=== PATIENT | male | born 1940 | race Caucasian/White ===

== ENCOUNTER 2017-11-20 12:19 | Inpatient (IN) | payer OTHER ==
[~2017-11-20] VITALS: Ht 180.3 cm; Wt 81.7 kg
[2017-11-20] MEDS ORDERED: FERROUS SULFAT325 M2 PO (14:53)
[2017-11-20] MEDS ORDERED: ATIVAN2 MG PO (14:53)
[2017-11-20] MEDS ORDERED: NEU300 PO (14:54)
[2017-11-20] MEDS ORDERED: PROTONIX40 MG PO (14:54)
[2017-11-20] MEDS ORDERED: COLACE100 MG PO (14:54)
[2017-11-20] MEDS ORDERED: METOPROLOL TART25 M1 PO (14:55)
[2017-11-20] MEDS ORDERED: LASIX40 MG PO (14:55)
[2017-11-20] MEDS ORDERED: NORCO1 TA2 PO (14:55)
[2017-11-20] MEDS ORDERED: LEVOTHYROXIN0.025 M2 PO (14:56)
[2017-11-20] MEDS ORDERED: BENAZEPRIL HYDR20 M1 PO (14:57)
[2017-11-20] MEDS ORDERED: THE PO (14:58)
[2017-11-20] MEDS ORDERED: VITAMIN B121000 MCG PO (14:58)
[2017-11-20 15:56] LABS: microscopic required? YES; urine erythrocyte TRACE (NEGATIVE)
[2017-11-20 16:09] LABS: BASOPHIL % 0.1 % (0-2)
[2017-11-20 16:13] LABS: PLATELET COUNT 89 x10^3mcL (130-400); RED CELL DISTRIBUTION WIDTH 19.9 % (11.5-14.5)
[2017-11-20 17:05] LABS: CHOLESTEROL/HDL RATIO 3.6
[2017-11-20 17:11] LABS: CALCIUM 8.4 mg/dL (8.5-10.1); CARBON DIOXIDE 26.3 mmol/L (21-32); CHLORIDE SERUM 104 mmol/L (98-107); CREATININE SERUM 0.8 mg/dL (0.7-1.3); GLUCOSE SERUM 122 mg/dL (74-106); POTASSIUM SERUM 4.3 mmol/L (3.5-5.1); SODIUM SERUM 138 mmol/L (136-145)
[2017-11-20 17:15] LABS: FREE T4 1.29 ng/dL (0.76-1.46); FREE THYROXINE INDEX 2.5 ug/dL (1.4-4.5); T4(THYROXINE) 6.6 ug/dL (4.7-13.3)
[2017-11-20 17:17] LABS: ALKALINE PHOSPHATASE 245 U/L (46-116); ALT/SGPT 40 U/L (16-63); AST/SGOT 83 U/L (15-37); BILIRUBIN TOTAL 1.39 mg/dL (0.20-1.00); CHOLESTEROL 149 mg/dL (<200); HDL CHOLESTEROL 43 mg/dL (40-60); PHOSPHOROUS 2.5 mg/dL (2.5-4.9); TOTAL PROTEIN, SERUM 7.9 g/dL (6.4-8.2); URIC ACID 4.7 mg/dL (3.5-7.2)
[2017-11-20 17:19] LABS: ALBUMIN 2.2 g/dL (3.4-5.0)
[2017-11-20 17:28] LABS: T3 TOTAL 0.61 ng/mL
[2017-11-20 18:00] VITALS: BP 122/68
[2017-11-20 21:29] VITALS: BP 102/53
[2017-11-21 05:55] VITALS: BP 93/60
[2017-11-21 07:14] LABS: BASOPHIL % 0 % (0-2); PLATELET COUNT 102 x10^3mcL (130-400); RED CELL DISTRIBUTION WIDTH 20.1 % (11.5-14.5)
[2017-11-21 07:33] LABS: CALCIUM 8.2 mg/dL (8.5-10.1); CARBON DIOXIDE 24.8 mmol/L (21-32); CHLORIDE SERUM 106 mmol/L (98-107); CREATININE SERUM 0.9 mg/dL (0.7-1.3); GLUCOSE SERUM 127 mg/dL (74-106); POTASSIUM SERUM 4.3 mmol/L (3.5-5.1); SODIUM SERUM 138 mmol/L (136-145)
[2017-11-21 12:50] VITALS: BP 112/70
[2017-11-21 17:33] VITALS: BP 104/74
[2017-11-21 21:11] VITALS: BP 115/75
[2017-11-22 05:43] VITALS: BP 128/75
[2017-11-22 07:18] LABS: CALCIUM 8.3 mg/dL (8.5-10.1); CARBON DIOXIDE 25.3 mmol/L (21-32); CHLORIDE SERUM 105 mmol/L (98-107); GLUCOSE SERUM 117 mg/dL (74-106); POTASSIUM SERUM 3.9 mmol/L (3.5-5.1); SODIUM SERUM 137 mmol/L (136-145)
[2017-11-22 07:22] LABS: BASOPHIL % 0.1 % (0-2); PLATELET COUNT 135 x10^3mcL (130-400); RED CELL DISTRIBUTION WIDTH 20.1 % (11.5-14.5)
[2017-11-22 07:23] LABS: rbc morphology (normal/abnorm) ABNORMAL (NORMAL)
[2017-11-22 09:57] VITALS: BP 116/66
[2017-11-22 14:18] VITALS: BP 116/74
[2017-11-22 17:34] VITALS: BP 114/75
[2017-11-22 20:45] VITALS: BP 123/70
[2017-11-23 05:23] VITALS: BP 114/69
[2017-11-23 06:35] LABS: PLATELET COUNT 132 x10^3mcL (130-400)
[2017-11-23 07:00] LABS: BASOPHIL % 0 % (0-2)
[2017-11-23 08:30] VITALS: BP 131/60
[2017-11-23 13:17] VITALS: BP 114/72
[2017-11-23 16:53] VITALS: BP 98/57
[2017-11-23 20:53] VITALS: BP 97/68
[2017-11-24 05:51] VITALS: BP 107/60
[2017-11-24 08:20] VITALS: BP 107/56
[2017-11-24 09:52] VITALS: Ht 180.3 cm; Wt 81.7 kg
[2017-11-24 13:01] LABS: CALCIUM 8.2 mg/dL (8.5-10.1); CARBON DIOXIDE 29.6 mmol/L (21-32); CHLORIDE SERUM 107 mmol/L (98-107); CREATININE SERUM 1.1 mg/dL (0.7-1.3); GLUCOSE SERUM 112 mg/dL (74-106); POTASSIUM SERUM 4.3 mmol/L (3.5-5.1); SODIUM SERUM 142 mmol/L (136-145)
[2017-11-24 18:01] VITALS: BP 100/61
[2017-11-24 21:54] VITALS: BP 116/75
[2017-11-25 05:49] VITALS: BP 118/82
[2017-11-25 06:40] LABS: PLATELET COUNT 131 x10^3mcL (130-400)
[2017-11-25 06:47] LABS: ALKALINE PHOSPHATASE 279 U/L (46-116); ALT/SGPT 36 U/L (16-63); AST/SGOT 90 U/L (15-37); BILIRUBIN TOTAL 1.61 mg/dL (0.20-1.00); CALCIUM 8.9 mg/dL (8.5-10.1); CARBON DIOXIDE 27.2 mmol/L (21-32); CHLORIDE SERUM 106 mmol/L (98-107); GLUCOSE SERUM 103 mg/dL (74-106); POTASSIUM SERUM 3.6 mmol/L (3.5-5.1); SODIUM SERUM 141 mmol/L (136-145); TOTAL PROTEIN, SERUM 7.4 g/dL (6.4-8.2)
[2017-11-25 07:07] LABS: ALBUMIN 2.1 g/dL (3.4-5.0)
[2017-11-25 07:08] LABS: BASOPHIL % 0 % (0-2); RED CELL DISTRIBUTION WIDTH 20.5 % (11.5-14.5)
[2017-11-25 07:09] LABS: rbc morphology (normal/abnorm) ABNORMAL (NORMAL)
[2017-11-25 09:45] VITALS: BP 138/80
[2017-11-25 16:40] VITALS: BP 133/76
[2017-11-25 21:16] VITALS: BP 114/74
[2017-11-26 06:40] VITALS: BP 122/76
[2017-11-26 09:34] VITALS: BP 108/59
[2017-11-26 12:37] LABS: PLATELET COUNT 130 x10^3mcL (130-400)
[2017-11-26 12:41] LABS: RED CELL DISTRIBUTION WIDTH 19.2 % (11.5-14.5)
[2017-11-26 12:45] LABS: CALCIUM 8.5 mg/dL (8.5-10.1); CARBON DIOXIDE 26.4 mmol/L (21-32); CHLORIDE SERUM 108 mmol/L (98-107); CREATININE SERUM 1.3 mg/dL (0.7-1.3); GLUCOSE SERUM 168 mg/dL (74-106); POTASSIUM SERUM 4.1 mmol/L (3.5-5.1); SODIUM SERUM 141 mmol/L (136-145)
[2017-11-26 13:29] LABS: BAND NEUTROPHIL 3 % (0-10); BASOPHIL 0 % (0-2); MONOCYTE 12 % (0-7); SEGMENTED NEUTROPHILS 85 % (37-75); rbc morphology (normal/abnorm) ABNORMAL (NORMAL)
[2017-11-26 13:30] LABS: PLATELET MORPHOLOGY PLATELETS DECREASED
[2017-11-26 17:30] VITALS: BP 88/54
[2017-11-26 19:05] VITALS: BP 96/55
[2017-11-26 21:52] VITALS: BP 97/61
[2017-11-27 06:03] VITALS: BP 101/60
[2017-11-27 08:38] LABS: BASOPHIL % 0 % (0-2); PLATELET COUNT 115 x10^3mcL (130-400); RED CELL DISTRIBUTION WIDTH 19.8 % (11.5-14.5)
[2017-11-27 08:46] LABS: CALCIUM 8.5 mg/dL (8.5-10.1); CARBON DIOXIDE 28.4 mmol/L (21-32); CHLORIDE SERUM 110 mmol/L (98-107); CREATININE SERUM 1.1 mg/dL (0.7-1.3); GLUCOSE SERUM 131 mg/dL (74-106); POTASSIUM SERUM 4.1 mmol/L (3.5-5.1); SODIUM SERUM 142 mmol/L (136-145)
[2017-11-27 09:43] VITALS: BP 104/67
[2017-11-27 17:07] VITALS: BP 98/63
[2017-11-27 22:06] VITALS: BP 110/67
[2017-11-28 05:31] VITALS: BP 105/61
[2017-11-28 06:47] LABS: BASOPHIL % 0 % (0-2); PLATELET COUNT 120 x10^3mcL (130-400)
[2017-11-28 06:54] LABS: RED CELL DISTRIBUTION WIDTH 20.4 % (11.5-14.5)
[2017-11-28 07:04] LABS: CALCIUM 8.5 mg/dL (8.5-10.1); CARBON DIOXIDE 23.8 mmol/L (21-32); CHLORIDE SERUM 108 mmol/L (98-107); CREATININE SERUM 1.2 mg/dL (0.7-1.3); GLUCOSE SERUM 108 mg/dL (74-106); POTASSIUM SERUM 4.2 mmol/L (3.5-5.1); SODIUM SERUM 140 mmol/L (136-145)
[2017-11-28 09:45] VITALS: BP 94/59
[2017-11-28 17:50] VITALS: BP 94/59
[2017-11-28 18:00] VITALS: BP 125/69
[2017-11-28 21:20] VITALS: BP 105/52
[2017-11-29 05:29] VITALS: BP 106/65
[2017-11-29 06:33] LABS: BASOPHIL % 0.1 % (0-2)
[2017-11-29 06:34] LABS: PLATELET COUNT 114 x10^3mcL (130-400); RED CELL DISTRIBUTION WIDTH 19.8 % (11.5-14.5)
[2017-11-29 06:48] LABS: CALCIUM 8.8 mg/dL (8.5-10.1); CARBON DIOXIDE 26.4 mmol/L (21-32); CHLORIDE SERUM 110 mmol/L (98-107); CREATININE SERUM 1.2 mg/dL (0.7-1.3); GLUCOSE SERUM 109 mg/dL (74-106); SODIUM SERUM 144 mmol/L (136-145)
[2017-11-29 10:00] VITALS: BP 108/72
[2017-11-29 17:42] VITALS: BP 105/77
[2017-11-29 21:34] VITALS: BP 115/63
[2017-11-30 05:27] VITALS: BP 107/67
[2017-11-30 06:49] LABS: CALCIUM 8.5 mg/dL (8.5-10.1); CHLORIDE SERUM 112 mmol/L (98-107); CREATININE SERUM 1.1 mg/dL (0.7-1.3); GLUCOSE SERUM 114 mg/dL (74-106); POTASSIUM SERUM 4.2 mmol/L (3.5-5.1); SODIUM SERUM 143 mmol/L (136-145)
[2017-11-30 07:03] LABS: BASOPHIL % 0 % (0-2); PLATELET COUNT 110 x10^3mcL (130-400); RED CELL DISTRIBUTION WIDTH 19.7 % (11.5-14.5)
[2017-11-30 09:51] VITALS: BP 103/69
[2017-11-30 12:48] VITALS: BP 95/66
[2017-11-30 13:57] VITALS: BP 104/69
[2017-11-30 18:08] VITALS: BP 99/67
[2017-11-30 20:42] VITALS: BP 114/63
[2017-12-01 06:10] VITALS: BP 98/67
[2017-12-01 06:36] LABS: CALCIUM 8.3 mg/dL (8.5-10.1); CARBON DIOXIDE 24.6 mmol/L (21-32); CHLORIDE SERUM 114 mmol/L (98-107); CREATININE SERUM 1.1 mg/dL (0.7-1.3); GLUCOSE SERUM 107 mg/dL (74-106); POTASSIUM SERUM 4.9 mmol/L (3.5-5.1); SODIUM SERUM 144 mmol/L (136-145)
[2017-12-01 06:57] LABS: BASOPHIL % 0.2 % (0-2)
[2017-12-01 07:07] LABS: PLATELET COUNT 114 x10^3mcL (130-400); RED CELL DISTRIBUTION WIDTH 20.1 % (11.5-14.5)
[2017-12-01 08:33] VITALS: BP 101/73
[2017-12-01 09:12] VITALS: BP 101/73
[2017-12-01 12:49] VITALS: BP 111/63
[2017-12-01 17:06] VITALS: BP 103/65
[2017-12-01 21:14] VITALS: BP 116/69
[2017-12-02] VITALS (7 sets, daily range): BP systolic 91–103; BP diastolic 48–67
[2017-12-02 06:43] LABS: CALCIUM 8.4 mg/dL (8.5-10.1); CARBON DIOXIDE 25.3 mmol/L (21-32); CHLORIDE SERUM 113 mmol/L (98-107); CREATININE SERUM 1.2 mg/dL (0.7-1.3); GLUCOSE SERUM 107 mg/dL (74-106); MAGNESIUM 2.6 mg/dL (1.8-2.4); PHOSPHOROUS 2.5 mg/dL (2.5-4.9); POTASSIUM SERUM 4.1 mmol/L (3.5-5.1); SODIUM SERUM 147 mmol/L (136-145)
[2017-12-02 06:44] LABS: BASOPHIL % 0 % (0-2); PLATELET COUNT 111 x10^3mcL (130-400); RED CELL DISTRIBUTION WIDTH 19.3 % (11.5-14.5)
[2017-12-03 05:55] VITALS: BP 96/65
[2017-12-03 06:32] LABS: PLATELET COUNT 132 x10^3mcL (130-400)
[2017-12-03 06:40] LABS: BASOPHIL % 0 % (0-2); CALCIUM 8.4 mg/dL (8.5-10.1); CHLORIDE SERUM 116 mmol/L (98-107); CREATININE SERUM 1.1 mg/dL (0.7-1.3); GLUCOSE SERUM 105 mg/dL (74-106); MAGNESIUM 2.6 mg/dL (1.8-2.4); PHOSPHOROUS 2.5 mg/dL (2.5-4.9); POTASSIUM SERUM 4.1 mmol/L (3.5-5.1); RED CELL DISTRIBUTION WIDTH 20.1 % (11.5-14.5); SODIUM SERUM 148 mmol/L (136-145)
[2017-12-03 07:29] LABS: rbc morphology (normal/abnorm) ABNORMAL (NORMAL)
[2017-12-03 10:11] VITALS: BP 94/62
[2017-12-03 12:39] VITALS: BP 98/61
[2017-12-03 16:41] VITALS: BP 98/61
== END 2017-12-03 17:15 | disposition short-term general hospital (02) | DRG 871 ==
LOC: ED 12:19 → MU 14:31 → DU 14:31 → MU 11-21 17:36 → DU 11-29 21:13
PROVIDERS: Emergency Medicine; Family Medicine; Family Medicine Sports Medicine
DX: A41.9 Sepsis, unspecified organism (principal); N17.0 Acute kidney failure with tubular necrosis; G93.41 Metabolic encephalopathy; E43 Unspecified severe protein-calorie malnutrition; S32.018A Other fracture of first lumbar vertebra, initial encounter for closed fracture; N39.0 Urinary tract infection, site not specified; K56.50 Intestinal adhesions [bands], unspecified as to partial versus complete obstruction; E87.0 Hyperosmolality and hypernatremia; C18.9 Malignant neoplasm of colon, unspecified; Y93.89 Activity, other specified; Y99.8 Other external cause status; W18.11XA Fall from or off toilet without subsequent striking against object, initial encounter; Z93.3 Colostomy status; Z68.27 Body mass index [BMI] 27.0-27.9, adult; Y92.002 Bathroom of unspecified non-institutional (private) residence as the place of occurrence of the external cause; Z85.038 Personal history of other malignant neoplasm of large intestine
CPT/HCPCS: 82962; 83880; 84439; 97110-GP; 97116-GP; 97530-GP; 97535-GP; 97760; C9113; J0696; J1100; J1644; J1885; J1956; J2270; J2405; J2550; J2765; J3010; J3490; J7030; J7042; J7620; Q0092; Q0161; Q9966; Q9967